=== PATIENT | female | born 1955 | race Caucasian/White ===

== ENCOUNTER 2016-08-28 11:37 | Observation (INO) | payer OTHER, BC ==
[~2016-08-28] VITALS: Ht 170.2 cm; Wt 74.8 kg
[2016-08-28 13:26] LABS: HEMOGLOBIN 13.2 gm/dl (12.3-15.3); RED BLOOD COUNT 4.51 M/UL (4.00-5.10); WHITE BLOOD COUNT 7.4 K/UL (4.5-11.0)
[2016-08-28 13:50] LABS: BUN/CREATININE RATIO 21 (0-10)
[2016-08-28] MEDS ORDERED: OXYCODONE HCL10 MG PO (20:41)
[2016-08-28] MEDS ORDERED: LOSARTAN POTAS100 MG PO (20:42)
[2016-08-28] MEDS ORDERED: OXYCODONE HCL E20 MG PO (20:42)
[2016-08-28] MEDS ORDERED: SILVADENE20 GM TOP (20:43)
[2016-08-28] MEDS ORDERED: NYSTOP60 GM TOP (20:44)
[2016-08-28] MEDS ORDERED: LEVOCETIRIZINE D5 MG PO (20:45)
[2016-08-28] MEDS ORDERED: NITROGLYCERIN0.4 MG SL (20:45)
[2016-08-28] MEDS ORDERED: HYDROCHLOROTH12.5 M1 PO (20:46)
[2016-08-28] MEDS ORDERED: ATORVASTATIN CA10 MG PO (20:46)
[2016-08-28] MEDS ORDERED: LIDODERM PATCH 51 EA TOP (20:46)
[2016-08-28] MEDS ORDERED: ELAVIL 10 MG TA10 MG PO (20:47)
[2016-08-28] MEDS ORDERED: DILTIAZEM 24HR240 MG PO (20:47)
[2016-08-30] MEDS ORDERED: XARELTO15 MG PO (15:16)
== END 2016-08-30 16:34 | disposition home or self-care (01) ==
LOC: ER1 11:37 → ZEROF 16:36 → MED SURG 4 16:36
PROVIDERS: Student in an Organized Health Care Education/Training Program; ADMIT Internal Medicine
DX: I26.99 Other pulmonary embolism without acute cor pulmonale (principal); T81.718A Complication of other artery following a procedure, not elsewhere classified, initial encounter; Z98.890 Other specified postprocedural states; I10 Essential (primary) hypertension; G89.4 Chronic pain syndrome; R10.9 Unspecified abdominal pain; M54.9 Dorsalgia, unspecified; I34.1 Nonrheumatic mitral (valve) prolapse; V49.9XXA Car occupant (driver) (passenger) injured in unspecified traffic accident, initial encounter; Y92.410 Unspecified street and highway as the place of occurrence of the external cause; R11.0 Nausea; R19.7 Diarrhea, unspecified; R63.4 Abnormal weight loss; R63.0 Anorexia; Z68.25 Body mass index [BMI] 25.0-25.9, adult; Z90.49 Acquired absence of other specified parts of digestive tract; Z79.02 Long term (current) use of antithrombotics/antiplatelets; Z79.899 Other long term (current) drug therapy; Z88.0 Allergy status to penicillin; Z88.6 Allergy status to analgesic agent; Z88.1 Allergy status to other antibiotic agents; Z88.8 Allergy status to other drugs, medicaments and biological substances
CPT/HCPCS: 36415; 70450; 71260; 72125; 72128; 72131; 73564; 80053; 81001; 82550; 82553; 83690; 83874; 84439; 84443; 84484; 85025; 85379; 85610; 85730; 87086; 93005; 93970; 96372; 96374; 96375; 96376; 99285; G0378; J1650; J2270; J2405; J7050; Q9962

== ENCOUNTER → 2016-08-31 | Outpatient (CLI) | payer OTHER ==
[~2016-08-31] MED LIST: ATORVASTATIN CA10 MG PO; DILTIAZEM 24HR240 MG PO; ELAVIL 10 MG TA10 MG PO; HYDROCHLOROTH12.5 M1 PO; LEVOCETIRIZINE D5 MG PO; LIDODERM PATCH 51 EA TOP; LOSARTAN POTAS100 MG PO; NITROGLYCERIN0.4 MG SL; NYSTOP60 GM TOP; OXYCODONE HCL E20 MG PO; OXYCODONE HCL10 MG PO; SILVADENE20 GM TOP; XARELTO15 MG PO
== END ==
LOC: ECHO 14:30 → US 09-07 10:15
DX: R22.1 Localized swelling, mass and lump, neck (principal); R60.0 Localized edema
CPT/HCPCS: 76536